=== PATIENT | female | born 1940 | race Caucasian/White ===

== ENCOUNTER 2020-09-12 13:58 | Emergency (ER) | payer MEDICAID ==
[~2020-09-12] VITALS: Ht 165.1 cm; Wt 76.2 kg
[2020-09-12] MEDS ORDERED: PENICILLIN V P500 MG PO (16:24)
[2020-09-12] MEDS ORDERED: NORCO5 PO ×2 (16:24→16:28)
[2020-09-12 16:45] VITALS: BP 142/70
== END 2020-09-12 16:45 | disposition home or self-care (01) ==
LOC: M.ERS 13:58
DX: K04.7 Periapical abscess without sinus (principal)